=== PATIENT | male | born 1955 | race Caucasian/White ===

== ENCOUNTER 2018-07-16 09:08 | Day surgery (SDC) ==
[2018-07-16] MEDS: TETRACAINE 0.5% UNIT-DOSE OP PRN ×2 (10:20→11:09)
[2018-07-16] MEDS: BETADINE OPTH PREP OP PRN ×2 (10:20→11:09)
[2018-07-16] MEDS: CYCLOGYL 2% OPTH OP PRN ×3 (10:21→10:31)
[2018-07-16] MEDS ORDERED: LIDOCAINE 1% 20 ML MDV ID STA (10:34)
[2018-07-16] MEDS ORDERED: DEX-MOXI-KETOR OPTH INJ 1/0.5/0.4 MG/ML IO ONE (10:34)
[2018-07-16] MEDS ORDERED: BRIMONIDINE TARTRATE 0.2% OPTH SOL OP PRN (10:34)
[2018-07-16] MEDS ORDERED: LIDOCAINE 1%/PHENYLEPHRINE 1.5% BSS (SURGERY) INTRAOCULA ONE (10:34)
[2018-07-16] MEDS ORDERED: ZOFRAN 4 MG/2 ML IVP ONE (10:34)
[2018-07-16] MEDS ORDERED: BSS WITH EPINEPHRINE OP ONE (10:34)
[2018-07-16 10:45] VITALS: TEMP 97.6
[2018-07-16] MEDS ORDERED: VERSED ONE (11:20)
[2018-07-16] MEDS ORDERED: SUBLIMAZE ONE (11:20)
[2018-07-16 13:59] VITALS: BP 127/676
== END 2018-07-16 12:15 | disposition home or self-care (01) ==
LOC: SURG 09:08
PROVIDERS: ATTEND Ophthalmology
DX: H25.813 Combined forms of age-related cataract, bilateral (principal)

== ENCOUNTER 2018-07-31 12:16 | Day surgery (SDC) ==
[2018-07-31] MEDS: BETADINE OPTH PREP OP PRN ×2 (14:54→15:08)
[2018-07-31] MEDS: TETRACAINE 0.5% UNIT-DOSE OP PRN ×2 (14:54→15:08)
[2018-07-31] MEDS ORDERED: LIDOCAINE 1%/PHENYLEPHRINE 1.5% BSS (SURGERY) INTRAOCULA ONE (14:55)
[2018-07-31] MEDS ORDERED: BSS WITH EPINEPHRINE OP ONE (14:55)
[2018-07-31] MEDS ORDERED: LIDOCAINE 1% 20 ML MDV ID STA (14:55)
[2018-07-31] MEDS ORDERED: BRIMONIDINE TARTRATE 0.2% OPTH SOL OP PRN (14:55)
[2018-07-31] MEDS ORDERED: ZOFRAN 4 MG/2 ML IVP ONE (14:55)
[2018-07-31] MEDS ORDERED: DEX-MOXI-KETOR OPTH INJ 1/0.5/0.4 MG/ML IO ONE (14:55)
[2018-07-31] MEDS: CYCLOGYL 2% OPTH OP PRN ×3 (14:55→15:05)
[2018-07-31] MEDS ORDERED: VERSED ONE (15:15)
[2018-07-31] MEDS ORDERED: SUBLIMAZE ONE (15:15)
[2018-07-31 17:45] VITALS: TEMP 98.4
[2018-08-02 13:36] VITALS: BP 127/67
== END 2018-07-31 16:00 | disposition home or self-care (01) ==
LOC: SURG 12:16
PROVIDERS: ATTEND Ophthalmology
DX: H25.812 Combined forms of age-related cataract, left eye (principal)